=== PATIENT | male | born 1965 | race African-American/Black ===

== ENCOUNTER 2017-05-28 07:01 | Emergency (ER) | payer OTHER ==
[~2017-05-28 07:01] MED LIST: CYCL5TAB PO; NAPR500 PO; Z.0.NO CURRENT MEDS
[2017-05-28 07:04] VITALS: BP 180/103; PULSE 76; RESP 14; TEMP 98.2; O2SAT 97
[2017-05-28] MEDS ORDERED: IBUPROFEN 600 MG TAB PO ONE (07:45)
--- NOTE | 2017-05-28 07:57 | PD ---
HPI Chief Complaint: Pain: Acute or Chronic Time Seen by Provider: 07:13 Travel History International Travel<30 days: No Contact w/Intl Traveler<30days: No Traveled to known affect area: No History of Present Illness HPI 52 year old male with a chief complaint of right sided abdominal/ groin pain with radiation through the right flank. He states that he has had pain like this before and was diagnosed with a right sided inguinal hernia for which he underwent laparoscopic herniorrhaphy three years ago at [facility]. When moving the patient states 04/07 pain. He currently denies bowel or bladder changes. He has no Chest pain or shortness of breath. He has no fevers or chills. Denies nausea, vomiting or diarrhea. Additionally the patient noted a numbness radiating down the right leg with pain in the lower back. [facility] Past Medical History Medical History: Denies Significant Hx Diminished Hearing: No Past Surgical History Other Surgery: Yes (hernia) Social History Alcohol Use: Yes (X2 PER WEEK) Tobacco Use: No Substance Use: No Allergies-Medications (Allergen,Severity, Reaction): Coded Allergies: No Known Allergies (Verified Adverse Reaction, Unknown, 05/28/17) Reported Meds & Prescriptions Reported Meds & Active Scripts Active Medrol Dosepak (Methylprednisolone) 4 Mg Dspk 4 Mg PO DIRECTED Per Pharmacist direction Review of Systems Except as stated in HPI: all other systems reviewed are Neg General / Constitutional: No: Fever, Chills, Weight Loss Eyes: No: Diploplia, Blurred Vision, Photophobia, Drainage, Redness, Foreign Body Sensation, Pain, Tearing, Blind Spots, Visual changes, Blindness, Other HENT: No: Headaches, Vertigo, Lightheadedness, Sore Throat, Rhinitis, Rhinorrhea, Congestion, Nosebleed, Neck Stiffness, Neck Pain, Masses, Gingival Bleeding, Dental Difficulties, Ear Discharge, Earache, Other Cardiovascular: No: Chest Pain or Discomfort Respiratory: No: Shortness of Breath Gastrointestinal: Positive: Abdominal Pain (RLQ), No: Nausea, Vomiting, Diarrhea, Hematochezia, Constipation, Changes in Bowel Habits Genitourinary: Positive: Flank Pain, No: Urgency, Frequency, Dysuria Musculoskeletal: No: Myalgias, Arthralgias, Limited ROM, Weakness, Cramping, Edema, Pain, Atrophy, Other Neurologic: Positive: Paresthesia (Right leg), No: Weakness, Dizziness, Syncope , Focal Abnormalities, Coordination Problem, Tremor, Ataxia, Headache, Change in Mentation, Slurred Speech, Incontinence, Seizures, Sensory Disturbance, Other Psychiatric: No: Anxiety, Depression, Suicidal Ideations, Disorder of Thought, Mood Disorder, Substance Abuse, Homicidal Ideation, Other Endocrine: No: Heat Intolerance, Cold Intolerance, Polyuria, Polydipsia, Other Hematologic/Lymphatic: No: Easy Bruising, Lymph Node Enlargement, Other Physical Exam Narrative GENERAL: patient is sitting up on the edge of the bed with no obvious signs of distress SKIN: Warm and dry. HEAD: Atraumatic. Normocephalic. EYES: Pupils equal and round. No scleral icterus. No injection or drainage. ENT: No nasal bleeding or discharge. Mucous membranes pink and moist. NECK: Trachea midline. No JVD. CARDIOVASCULAR: Regular rate and rhythm. RESPIRATORY: No accessory muscle use. Clear to auscultation. Breath sounds equal bilaterally. GASTROINTESTINAL: Abdomen soft, minimally tender in the right inguinal region. There is a reducible inguinal hernia palpable in the right groin appears to be indirect., There is no palpable pulsation within the hernia. abdomen is nondistended. Hepatic and splenic margins not palpable. No rebound no percussive tenderness, testes and scrotum normal. MUSCULOSKELETAL: Extremities without clubbing, cyanosis, or edema. No obvious deformities. Straight leg raise is negative, no midline CT or L-spine tenderness. NEUROLOGICAL: Awake and alert. No obvious cranial nerve deficits. Motor grossly within normal limits. Five out of 5 muscle strength in the arms and legs. Normal speech. PSYCHIATRIC: Appropriate mood and affect; insight and judgment normal. Data Data Last Documented VS Vital Signs Date Time Temp Pulse Resp B/P (MAP) Pulse Ox O2 Delivery O2 Flow Rate FiO2 05/28/17 08:18 05/28/17 07:04 98.2 76 14 97 Orders Orders Ibuprofen (Motrin) (05/28/17 07:45) Ed Discharge Order (05/28/17 08:09) [facility] Medical Decision Making Medical Screen Exam Complete: Yes Emergency Medical Condition: Yes Differential Diagnosis Direct versus indirect inguinal hernia, muscle strain, sciatica, nephrolithiasis Narrative Course Patient was advised to follow up with a general surgeon for operative evaluation of the inguinal hernia, as well as take ibuprofen for pain and anti- inflammatory action. We will also provide the patient with a short course of oral steroids in an effort to reduce any inflammation around his nerve roots that could be causing sciatica. He was advised to follow up with his primary care physician for further diagnosis and management of his lower back pain. Diagnosis Primary Impression: Sciatica Qualified Codes: M54.31 - Sciatica, right side Additional Impression: Hernia Referrals: Wilberto Rivera MD Med/Other Pt SpecificInfo: Prescription(s) given Scripts Methylprednisolone Dosepak (Medrol Dosepak) 4 Mg Dspk 4 MG PO DIRECTED, #1 DSPK 0 Refills Per Pharmacist direction Prov: Sandeep Case MD 05/28/17 Disposition: 01 DISCHARGE HOME Condition: Stable Sandeep Case MD May 28, 2017 07:57
[2017-05-28] MEDS ORDERED: MEDR4PAK PO (08:07)
== END 2017-05-28 08:32 | disposition home or self-care (01) ==
LOC: NEPC 07:01
DX: M54.31 Sciatica, right side (principal); K40.90 Unilateral inguinal hernia, without obstruction or gangrene, not specified as recurrent; M54.5 Low back pain
CPT/HCPCS: 99283